=== PATIENT | female | born 1935 | race Caucasian/White ===

== ENCOUNTER 2017-03-02 22:10 | Emergency (ER) | payer BC ==
[2017-03-02 22:29] VITALS: O2SAT 96
[2017-03-02] MEDS ORDERED: NS 1,000 ML IV ONE (23:01)
[2017-03-02] MEDS ORDERED: DEXAMETHASONE 10 MG/ML VIAL IVP ONE (23:01)
--- NOTE | 2017-03-02 23:04 | EDPHY ---
H & P Stated Complaint: c/o blurry vision/navarro earlier today, hit head approx 8 days ago Time Seen by Provider: 03/02/17 23:02 HPI/ROS: HPI: This is a 81-year-old female who presents with Chief Complaint: Frontal headache Location: Frontal Quality: Headache Duration: 1 week Signs and Symptoms: + transient blurred vision, no fever, no floaters, no neck stiffness, no dizziness, no ear pain, no weakness Timing: Gradual onset, intermittent Severity: Mild Context: Patient reports a days ago that she bent over to pickle maker some thing and when she stood up she hit the top of her head. She felt immediate pain but it gradually resolved. She received her flu shot approximately 2 days ago. Today, she had gradual onset of bilateral blurry vision in dull frontal and temporal headache earlier today. It has improved but she became worried that she may have a bleed inside her brain. Does not take any aspirin or blood thinners. at bedside and reports that she is behaving at baseline. Modifying Factors: Took Tylenol with moderate relief Comment: ROS: Constitutional: No fever, no chills, no weight loss Eyes: No blurred vision Respiratory: No shortness of breath, no cough Cardiovascular: No chest pain Gastrointestinal: No nausea, no vomiting no diarrhea Genitourinary: No dysuria Extremities: No myalgias Neurologic: No weakness, no numbness Skin: No rashes Hematologic: No bruising, no bleeding MEDICAL/SURGICAL/SOCIAL HISTORY: htn, glaucoma, arthritis, R shoulder replacement, L knee replacement Social history: CONSTITUTIONAL: Pleasant well-appearing elderly white female, awake and alert, no obvious distress HEENT: Small contusion noted to right parietal temporal area. normocephalic, PERRL, EOMI. Conjunctiva clear. Tympanic membranes clear. Oropharynx clear, no exudate and moist pink mucosa. Airway patent. No lymphadenopathy. No meningismus. Cardiovascular: Normal S1/S2, regular rate, regular rhythm, without murmur rub or gallop. PULMONARY/CHEST: Symmetrical and nontender. Clear to auscultation bilaterally. Good air movement. No accessory muscle usage. ABDOMEN: Soft, nondistended, nontender, no rebound, no guarding, no peritoneal signs, no masses or organomegaly. No CVAT. EXTREMITIES: 2/2 pulses, no deformities, no clubbing, no cyanosis or edema. NEUROLOGICAL: no focal neuro deficits. GCS 15. Normal oeqhqn-mm-hnii test. Normal nrbz-ix-bhpp test. Normal Romberg test. Speech clear. SKIN: Warm and dry, no erythema. no rash. Good capillary refill. Source: Patient, Family - Medical/Surgical History Hx Asthma: No Hx Chronic Respiratory Disease: No Hx Diabetes: No Hx Cardiac Disease: Yes Hx Renal Disease: No Hx Cirrhosis: No Hx Alcoholism: No Hx HIV/AIDS: No Hx Splenectomy or Spleen Trauma: No Other PMH: htn, glaucoma, arthritis, R shoulder replacement, L knee replacement - Social History Smoking Status: Never smoked Constitutional: Initial Vital Signs Temperature (C) 36.7 C 03/02/17 22:22 Heart Rate 73 03/02/17 22:22 Respiratory Rate 18 03/02/17 22:22 Blood Pressure 170/100 H 03/02/17 22:22 O2 Sat (%) 96 03/02/17 22:22 O2 Delivery Mode Room Air Allergies/Adverse Reactions: No Known Allergies Allergy (Unverified 03/02/17 22:29) Home Medications: Medication Instructions Recorded Mobic 7.5 mg 03/02/17 Norvasc 03/02/17 Timolol 03/02/17 Tylenol 03/02/17 Medical Decision Making - Diagnostics Imaging Results: Imaging Impressions Head CT 03/02/17 23:01 Impression: There is no acute abnormality identified on this unenhanced CT evaluation. If there is further clinical concern regarding the patient's symptoms, MR imaging is suggested, if not otherwise contraindicated. Findings were discussed with Bharati Caruso PA-C at 23:47, on 03/02/2017. ED Course/Re-evaluation: Head CT scan, IV fluids, IV medications ordered No LOC. Given 1 L normal saline, IV Decadron, IV Benadryl. Patient with high lightly declined any IV medication. Called by radiologist and head CT scan shows no acute intracranial process. Patient may have a mild concussion at this time coupled with recent influenza vaccine. Advised supportive care and to follow up with primary care provider in a few days for close monitoring. Differential Diagnosis: Headache including but not limited to subarachnoid hemorrhage, migraine headache , tension headache and infectious causes such as meningitis, pharyngitis and sinusitis. - Data Points Medications Given: Discontinued Medications Dexamethasone (Decadron Injection) 10 mg IVP EDNOW ONE Stop: 03/02/17 23:02 Last Admin: 03/03/17 00:28 Dose: Not Given Diphenhydramine HCl (Benadryl Injection) 50 mg IVP EDNOW ONE Stop: 03/02/17 23:02 Last Admin: 03/03/17 00:28 Dose: Not Given Sodium Chloride (Ns) 1,000 mls @ 0 mls/hr IV ONCE ONE; Wide Open PRN Reason: Protocol Stop: 03/02/17 23: Last Admin: 03/03/17 00:28 Dose: Not Given Departure - Departure Disposition: Home, Routine, Self-Care Clinical Impression: Mild concussion Qualifiers: Encounter type: initial encounter Loss of consciousness presence/duration: without LOC Qualified Code(s): S06.0X0A - Concussion without loss of consciousness, initial encounter Condition: Good Instructions: Concussion (ED), Post Concussion Syndrome (ED) Additional Instructions: Take Tylenol as needed for headache. Please follow up with her primary care provider this week. Rest much as possible. Drink plenty of fluids. Avoid physical and contact activities until cleared seen by your primary care physician. If your headache becomes intractable and severe, change in neurological status, vision loss, weakness; please return to the ER immediately. Referrals: Martha Peter MD [Primary Care Provider] - As per Instructions
[2017-03-03 00:30] VITALS: BP 151/100; PULSE 69; RESP 16; TEMP 97.9
== END 2017-03-03 00:30 | disposition home or self-care (01) ==
DX: S06.0X0A Concussion without loss of consciousness, initial encounter (principal); I10 Essential (primary) hypertension; W22.8XXA Striking against or struck by other objects, initial encounter
CPT/HCPCS: J1100; J1200

== ENCOUNTER 2017-10-25 16:49 | Emergency (ER) | payer BC ==
--- NOTE | 2017-10-25 17:45 | EDPHY ---
General - History Smoking Status: Never smoked Time Seen by Provider: 10/25/17 17:33 Narrative: CHIEF COMPLAINT: Shortness of breath, scratchy eyes, watery eyes, allergies HISTORY OF PRESENT ILLNESS: Patient complains of 1 day history of shortness of breath and one-week history of allergy symptoms. She says it started with "a scratchy throat and my eyes were watering." Over the past few days it has progressed to shortness of breath and cough. She did have some chest pressure last night on the left side. She says this resolved and was nonexertional. Cough is mostly dry. It is worse when she lays down and better when she sits up no fever. No chills. No headache or pain. No abdominal or urinary complaints. No rash. She was concerned to the point that she called her primary care physician and went to an urgent care. The urgent care performed an EKG but sent her to our facility for higher level of care. She is leaving for [place] on Saturday and "just wants to make sure I'm okay." She denies any chest pain of any kind today or at this time. No other associated complaints or modifying factors REVIEW OF SYSTEMS: Ten systems reviewed and are negative unless otherwise noted in the HPI PCP: Dr. Darling SPECIALISTS: Dr. Moralez, cardiology Orthopedics PAST MEDICAL HISTORY: Orthopedic injuries, hypertension, glaucoma arthritis, PAST SURGICAL HISTORY: Shoulder knee arthroplasty SOCIAL HISTORY: Never smoker. Lives here independently with her spouse. Originally from [facility] and traveling on Saturday FAMILY HISTORY: Noncontributory EXAMINATION General Appearance: Alert, no distress Head: normocephalic, atraumatic Eyes: Pupils equal and round, no conjunctival pallor or injection ENT, Mouth: Mucous membranes moist. Uvula is midline. The posterior pharynx does exhibit postnasal drip with minimal erythema. No edema or exudate. Airway widely patent. Neck: Normal inspection, supple, non-tender. No meningismus. Respiratory: Lungs are clear to auscultation. No retraction distress. No consolidation or crackles Cardiovascular: Regular rate and rhythm. No murmur Gastrointestinal: Abdomen is soft and nontender Back: non-tender, no bony abnormalities Neurological: A&O, nonfocal, normal gait Skin: Warm and dry, no rash no petechiae or purpura Extremities: Nontender, no pedal edema Psychiatric: Mood and affect normal DIFFERENTIAL DIAGNOSES: Including but not limited to bronchitis, pneumonitis, bronchiolitis, PE, congestive heart failure, ACS, pleurisy, pericarditis MDM: 5:45 p.m. Shortness of breath with chest pressure last night allergic rhinitis symptoms over the past week. The patient does not feel it is cardiac in etiology, nor do I suspect this. However she does have some increasing shortness of breath. Thus I have ordered cardiac workup including EKG and chest x-ray. She is in no acute distress. I reviewed the unofficial EKG from prior to arrival, and there is no ischemia or conduction delay. She is in no acute distress with vital signs stable. 6:20 p.m. D-dimer is negative, chest x-ray has been read by radiologist with no pneumonia. Remainder laboratory studies pending. 6:55 p.m. Patient re-evaluated. Troponin is negative. BNP is within normal limits. The chest x-ray is negative and I have informed her of this. I re-evaluated the patient. I do feel that she likely has a bronchitis and allergic rhinitis. She likely has postnasal drip that is causing her pharyngitis and likely her cough. I do not feel she would benefit from any antibiotics as her laboratory studies are within normal limits and she is afebrile. Her oxygen is within normal limits. She is not a smoker or diabetic. I will treat her with steroid therapy and recommend antihistamines [id number] at home. I have also recommended llht-pua-rswlvei dextromethorphan for her cough. I discussed this at length with her as she has some confusion with the medications. I have written all this down for her as well. I would like her to return here to this emergency department in 24 hr if she does not have complete resolution of her symptoms or sooner if she has any return of chest pain. She is comfortable this plan and discharged home stable condition. EKG interpretation:Dr. Carmona Sinus rhythm without ischemia SUPERVISION: Patient was independently examined, but I discussed the case with my secondary supervising physician Dr. Carmona ([facility]) Medical Decision Making: I did not see this patient while she was in the emergency department. However her care was discussed with the PA while the patient was in the department. I agree with treatment plan and management (Jorge Carmona) - Objective Vital Signs: Initial Vital Signs Temperature (C) 36.6 C 10/25/17 16:56 Heart Rate 72 10/25/17 16:56 Respiratory Rate 20 10/25/17 16:56 Blood Pressure 144/91 H 10/25/17 16:56 O2 Sat (%) 96 10/25/17 16:56 O2 Delivery Mode Room Air Allergies/Adverse Reactions: No Known Allergies Allergy (Verified 10/25/17 16:55) Home Medications: Medication Instructions Recorded Mobic 7.5 mg 03/02/17 Norvasc 03/02/17 Timolol 03/02/17 Tylenol 03/02/17 methylPREDNISolone [Medrol Dose 1 each PO AD #1 ea 10/25/17 Jairo] Laboratory Results: Laboratory Results 10/25/17 17:50 10/25/17 17:50 Departure - Departure Disposition: Home, Routine, Self-Care Clinical Impression: Bronchitis Allergic rhinitis Qualifiers: Allergic rhinitis trigger: other Allergic rhinitis seasonality: seasonal Qualified Code(s): J30.89 - Other allergic rhinitis Dyspnea Qualifiers: Dyspnea type: unspecified Qualified Code(s): R06.00 - Dyspnea, unspecified Condition: Good Instructions: Allergies (ED), Shortness of Breath (ED) Additional Instructions: 1. Medrol Dosepak as prescribed to completion. First dose tonight 2. Nubi-nkc-ijcyjtr nonsedating antihistamine, loratadine. One pill once daily for 2 weeks 3. Bxjm-ujj-urylhil Benadryl antihistamine, 1 pill at night as needed 4. Chxo-bgs-ncjktsk cough medicine, dextromethorphan as prescribed on bottle as needed 5. Follow up with primary care physician and marker maker 6. Return to emergency department for any return of chest pain or worsening cough shortness of breath Referrals: Geronimo Moralez MD [Primary Care Provider] - As per Instructions Prescriptions: methylPREDNISolone [Medrol Dose Jairo] 1 each PO AD #1 ea
--- NOTE | 2017-10-25 17:50 | CPEKG ---
Heart Rate: 68 RR Interval: 882 P-R Interval: 212 QRSD Interval: 96 QT Interval: 416 QTC Interval: 443 P Gladbrook: 73 QRS Gladbrook: -7 T Wave Gladbrook: 11 EKG Severity - NORMAL ECG - EKG Impression: SINUS RHYTHM Electronically Signed By: Jorge Carmona 25-Oct-2017 23:52:55
[2017-10-25 18:27] LABS: PLATELET COUNT 260 10^3/uL (150-400)
[2017-10-25 19:27] VITALS: BP 132/82
== END 2017-10-25 19:26 | disposition home or self-care (01) ==
DX: J40 Bronchitis, not specified as acute or chronic (principal); J30.89 Other allergic rhinitis; I10 Essential (primary) hypertension